=== PATIENT | male | born 1990 | race Caucasian/White ===

== ENCOUNTER 2018-06-25 05:43 | Emergency (ER) | payer SELFPAY ==
[~2018-06-25] VITALS: Ht 172.7 cm; Wt 78.6 kg
[2018-06-25 05:45] VITALS: BP 149/89
[2018-06-25] MEDS ORDERED: BACITRACIN ZINC OINT 500U/GM, 0.9 GM ONE (06:02)
== END 2018-06-25 06:33 | disposition home or self-care (01) ==
LOC: ED 06:04
DX: S41.011D Laceration without foreign body of right shoulder, subsequent encounter (principal); X58.XXXD Exposure to other specified factors, subsequent encounter
CPT/HCPCS: 99283